=== PATIENT | female | born 1975 | race Caucasian/White ===

== ENCOUNTER 2019-01-21 10:37 | Inpatient (IN) | payer OTHER ==
[2019-01-21 12:26] VITALS: BMI 33.5
--- NOTE | 2019-01-21 13:18 | HP ---
COWS - Scale Resting Pulse: 1= SD 81-100 Sweatin= Chills/Flushing Restless Observation: 0= Sits Still Pupil Size: 0= Normal to Room Light Bone or Joint Aches: 2= Severe Diffuse Aches Runny Nose/ Eye Tearin= Runny Nose/Eyes GI Upset > 30mins: 2= Nausea/Diarrhea Tremor Observation: 1= Tremor [place], Not Seen Yawning Observation: 0= None Anxiety or Irritability: 2=Irritable/Anxious Goose Flesh Skin: 0=Smooth Skin COWS Score: 11 CIWA Score Nausea/Vomitin Muscle Tremors: 1-None Visible, but [place] Anxiety: 4-Mod. Anxious/Guarded Agitation: 1-Slight > Activity Paroxysmal Sweats: 2 Orientation: 2-Disoriented Date<2 days Tacttile Disturbances: 0-None Auditory Disturbances: 2-Mild Harshness/Frighten Visual Disturbances: 2-Mild Sensitivity Headache: 0-None Present CIWA-Ar Total Score: 16 - Admission Criteria OASAS Guidelines: Admission for Medically Managed Detox: Requires at least one of the followin. CIWA greater than 12 2. Seizures within the past 24 hours 3. Delirium tremens within the past 24 hours 4. Hallucinations within the past 24 hours 5. Acute intervention needed for co occurring medical disorder 6. Acute intervention needed for co occurring psychiatric disorder 7. Severe withdrawal that cannot be handled at a lower level of care (continued vomiting, continued diarrhea, abnormal vital signs) requiring intravenous medication and/or fluids 8. Admission ROS [facility] Allergies/Adverse Reactions: Allergies Allergy/AdvReac Type Severity Reaction Status Date / Time Latex, Natural Rubber Allergy Rash Verified 01/21/19 12:08 History of Present Illness: This report was requested by: Nadiya Orellana | Reference #: [id number] Others' Prescriptions Patient Name: Vidhi Nguyen Date: 1975 Address: [address] [place] [address] Sex: Female Rx Written Rx Dispensed Drug Quantity Days Supply Prescriber Name 01/05/2019 01/10/2019 fentanyl 100 mcg/hr patch 10 30 Amilcar Meza MD 12/14/2018 12/15/2018 fentanyl 100 mcg/hr patch 10 30 Amilcar Meza MD 12/14/2018 12/14/2018 diazepam 10 mg tablet 60 30 Amilcar Meza MD 11/23/2018 11/24/2018 alprazolam 2 mg tablet 90 30 MezaAmilcar MD 11/23/2018 11/24/2018 fentanyl 75 mcg/hr patch 10 30 MezaAmilcar MD 11/16/2018 11/20/2018 triazolam 0.25 mg tablet 90 30 MezaAmilcar MD 11/16/2018 11/16/2018 diazepam 10 mg tablet 60 30 MezaAmilcar MD 10/27/2018 10/27/2018 alprazolam 2 mg tablet 90 30 MezaAmilcar MD 10/27/2018 10/27/2018 fentanyl 75 mcg/hr patch 10 30 MezaAmilcar MD 10/21/2018 10/22/2018 flurazepam 15 mg capsule 20 20 MezaAmilcar MD 10/19/2018 10/19/2018 zolpidem tartrate 10 mg tablet 30 30 Meza Amilcar MD 10/01/2018 10/01/2018 alprazolam 2 mg tablet 90 30 MezaAmilcar MD 10/01/2018 10/01/2018 fentanyl 75 mcg/hr patch 10 30 MezaAmilcar MD 09/03/2018 09/03/2018 fentanyl 75 mcg/hr patch 10 30 MezaAmilcar MD 09/03/2018 09/03/2018 alprazolam 2 mg tablet 90 30 MezaAmilcar MD 08/04/2018 08/04/2018 fentanyl 75 mcg/hr patch 10 30 MezaAmilcar MD 08/03/2018 08/03/2018 alprazolam 2 mg tablet 90 30 MezaAmilcar MD 07/06/2018 07/06/2018 fentanyl 75 mcg/hr patch 10 30 MezaAmilcar MD 07/06/2018 07/06/2018 alprazolam 1 mg tablet 90 30 MezaAmilcar MD 07/06/2018 07/06/2018 triazolam 0.25 mg tablet 90 30 MezaAmilcar MD 06/08/2018 06/08/2018 fentanyl 75 mcg/hr patch 10 30 MezaAmilcar MD 06/08/2018 06/08/2018 alprazolam 1 mg tablet 90 30 MezaAmilcar MD 06/08/2018 06/08/2018 triazolam 0.25 mg tablet 90 30 DerrickAmilcar MD 05/07/2018 05/07/2018 fentanyl 75 mcg/hr patch 10 30 DerrickAmilcar MD 05/07/2018 05/07/2018 alprazolam 1 mg tablet 90 30 MezaAmilcar MD 05/07/2018 05/07/2018 triazolam 0.25 mg tablet 90 30 MezaAmilcar MD 04/10/2018 04/10/2018 fentanyl 75 mcg/hr patch 10 30 DerrickAmilcar MD 04/10/2018 04/10/2018 alprazolam 1 mg tablet 90 30 MezaAmilcar MD 03/31/2018 03/31/2018 triazolam 0.25 mg tablet 90 30 MezaAmilcar MD 03/09/2018 03/12/2018 alprazolam 1 mg tablet 90 30 MezaAmilcar MD 03/12/2018 03/12/2018 fentanyl 75 mcg/hr patch 10 30 DerrickAmilcar MD 02/27/2018 02/27/2018 triazolam 0.25 mg tablet 90 30 MezaAmilcar MD 02/12/2018 02/12/2018 fentanyl 75 mcg/hr patch 10 30 DerrickAmilcar MD 02/12/2018 02/12/2018 alprazolam 1 mg tablet 90 30 DerrickAmilcar MD 02/02/2018 02/02/2018 triazolam 0.25 mg tablet 90 30 DerrickAmilcar MD 01/30/2018 01/30/2018 acetaminophen-cod #3 tablet 20 pt reports rx for benzodiazepines x 10 years , denies abusing meds , states tried to go to the methadone clinic and was told to go to detox from benzodiazepine prior to admission . Pt reports heroin use until 3 days ago , went to [facility] 2/2 OD taking benzo and heroin 4 bags IVDU in jeanette UE , needles from the exchange , denies sharing , denies re-using , denies abscess , heroin use x 25 years , prior detox once at age 19 . Pt reports back pain since 10 years ago , rx for Fentanyl x 2 years for pain currently has 200 mcg /hr ( 2 patches ) reports pain in " spine " , neck , reports has seen orthopedics and was told she needs to have surgery , planning to have surgery . Pt initially denies abusing rx meds, then admits to using 2 fentanyl patches at one time , and states that from the most recent rx there are 2 patches left in her possession as she has already used all the others . PMHX : Alports' syndrome , cholelithiasis , ovarian cyst , hemangioma spine , chronic back pain and disc disease , [place] 10 days ago went to [facility]. 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 Exam Limitations: Clinical Condition - Ebola screening Have you traveled outside of the country in the last 21 days: No (N) Have you had contact with anyone from an Ebola affected area: No Do you have a fever: No Patient History - Smoking Cessation Smoking history: Current every day smoker Have you smoked in the past 12 months: Yes Initiated information on smoking cessation: No - Substances abused Alprazolam (Xanax) Substance route: Oral Frequency: Daily Amount used: 6mg Age of first use: 16 Date of last use: 01/18/19 Diazepam Substance route: Oral Frequency: Daily Amount used: 30mg Age of first use: 16 Date of last use: 01/18/19 Heroin Substance route: Injection Frequency: Daily Amount used: 4bags Age of first use: 16 Date of last use: 01/18/19 Other Other (specify): fentanyl- patch 200mg Frequency: Daily Amount used: 200mg q 3 days Age of first use: 40 Date of last use: 01/21/19 Admission Physical Exam BHS - Vital Signs Vital Signs: Vital Signs - 24 hr 01/21/19 01/21/19 12:06 12:46 Temperature 98.1 F 98.1 F Pulse Rate 91 H 91 H Respiratory 19 19 Rate Blood Pressure 139/95 139/95 - Physical General Appearance: Yes: Mild Distress, Anxious HEENTM: Yes: EOMI, Hearing grossly Normal, Normocephalic, Normal Voice Respiratory: Yes: Chest Non-Tender, Lungs Clear, Normal Breath Sounds Neck: Yes: No masses,lesions,Nodules, Trachea in good position Cardiology: Yes: Regular Rhythm, Regular Rate, S1, S2, Tachycardia Abdominal: Yes: Non Tender, Soft Back: Yes: Normal Inspection Musculoskeletal: Yes: Gait Steady Extremities: Yes: Normal Capillary Refill, Non-Tender Neurological: Yes: Alert, Motor Strength 5/5 Integumentary: Yes: Warm, Track Molina (jeanette UE , ecchymosis), Other (Fentanyl 100 MCG patch on outer aspect of each arm for a total of 200 mcg /hr unknown date of placement " they're almost out " per pt .) - Diagnostic (1) Opioid abuse Current Visit: Yes Status: Acute (2) Sedative dependence with current use Current Visit: Yes Status: Acute Breathalyzer - Breathalyzer Breathalyzer: 0 Urine Drug Screen - Test Device Lot number: [id number] Expiration date: 10/01/20 - Control Is test valid?: Yes - Results Drug screen NEGATIVE: No Urine drug screen results: FEN-Fentanyl, BZO-Benzodiazepines Inpatient Rehab Admission - Rehab Decision to Admit Inpatient rehab admission?: No
[2019-01-21] MEDS ORDERED: MENTHOL/PHENOL 1 EACH UD MM PRN (14:54)
[2019-01-21] MEDS ORDERED: DICYCLOMINE HCL 10 MG CAPSULE PO PRN (14:54)
[2019-01-21] MEDS ORDERED: MAGNESIUM HYDROX 2400MG/30ML ORAL SUSPENSION 30 ML CUP PO PRN (14:54)
[2019-01-21] MEDS ORDERED: ACETAMINOPHEN 325 MG TABLET (FP) PO PRN (14:54)
[2019-01-21] MEDS ORDERED: PROCHLORPERAZINE MALEATE 5 MG TABLET PO PRN (14:54)
[2019-01-21] MEDS ORDERED: hydrOXYzine PAMOATE 25 MG CAPSULE (FP) PO PRN (14:54)
[2019-01-21] MEDS ORDERED: MAG HYDROX/AL HYDROX/SIMETH 30 ML UNIT-DOSE CUP PO PRN (14:54)
[2019-01-21] MEDS ORDERED: NICOTINE POLACRILEX 2 MG GUM BUC PRN (14:54)
[2019-01-21] MEDS ORDERED: cloNIDine HCL 0.1 MG TABLET PO PRN (14:54)
[2019-01-21] MEDS ORDERED: MAGNESIUM CITRATE 300 ML BOTTLE PO PRN (14:54)
[2019-01-21] MEDS ORDERED: chlordiazePOXIDE HCL 25 MG CAPSULE PO ONE (15:15)
[2019-01-21] MEDS: chlordiazePOXIDE HCL 25 MG CAPSULE PO SCH ×2 (16:40→22:22)
[2019-01-21] MEDS: METHOCARBAMOL 500 MG TABLET PO PRN ×2 (16:49→22:44)
[2019-01-21] MEDS: ACETAMINOPHEN 325 MG TABLET (FP) PO PRN (18:48)
[2019-01-21] MEDS: THIAMINE HCL 100 MG TABLET (FP) PO SCH (22:21)
[2019-01-21] MEDS: MELATONIN 5 MG TABLETS PO PRN (22:43)
[2019-01-21] MEDS ORDERED: METHADONE HCL 10 MG TABLET (FOR DETOX USE ONLY) PO ONE (23:00)
[2019-01-22] MEDS: chlordiazePOXIDE HCL 25 MG CAPSULE PO SCH ×3 (05:21→17:51)
[2019-01-22] MEDS ORDERED: METHADONE HCL 10 MG TABLET (FOR DETOX USE ONLY) PO ONE (10:00)
[2019-01-22] MEDS: PRENATAL VITAMINS W/ FOLIC ACID TABLET (FP) PO SCH (10:11)
[2019-01-22] MEDS ORDERED: LIDOCAINE 5% TOPICAL PATCH TP ONE (11:25)
--- NOTE | 2019-01-22 11:30 | CONSULT ---
[facility] Psychiatric Consult - Data Date of interview: 01/22/19 Admission source: [facility] Identifying data: Patient is a 43 year old single female, without children, unemployed, homeless, and is supported by [facility]. This is patient's first admission to detox at [facility]. Patient admitted to for opioid and benzodiazepine dependence. Substance Abuse History: Smoking Cessation. Smoking history: Current every day smoker. Have you smoked in the past 12 months: Yes. Initiated information on smoking cessation: No. - Substances abused. Alprazolam (Xanax). Substance route: Oral. Frequency: Daily. Amount used: 6mg. Age of first use: 16. Date of last use: 01/18/19. Diazepam. Substance route: Oral. Frequency: Daily. Amount used: 30mg. Age of first use: 16. Date of last use: 01/18/19. Heroin. Substance route: Injection. Frequency: Daily. Amount used: 4bags. Age of first use: 16. Date of last use: 01/18/19. Other. Other (specify): fentanyl- patch 200mg. Frequency: Daily. Amount used: 200mg q 3 days. Age of first use: 40. Date of last use: 01/21/19 Medical History: adenoids and tonsillectomy @ age 6 Psychiatric History: Patient's first psychiatric contact was at 11 years of age after she had a suicide attempt via cutting wrist and overdose. She was admitted to [facility] and started on psychotropic medications. After discharge she continued psychiatric treatment as an adolescent in outpatient clinics and reports being prescribed valium, xanac, and antidepressant medications. As an adult patient reports two psychiatric hospitalizations at [facility]. As an adult she reports one suicide attempt over ten years ago via overodse. Outpatient psychiatric care is provided by a private psychiatrist in [facility]. Ms. Jernigan is currently prescribed Celexa 40mg HS + Thorazine 50mg BID. At present she reports feeling sad but is motivated to complete detox. Physical/Sexual Abuse/Trauma History: denies. Mental Status Exam - Mental Status Exam Alert and Oriented to: Time, Place, Person Cognitive Function: Good Patient Appearance: Well Groomed Mood: Sad Affect: Mood Congruent Patient Behavior: Cooperative Speech Pattern: Appropriate Voice Loudness: Normal Thought Process: Goal Oriented Thought Disorder: Not Present Hallucinations: Denies Suicidal Ideation: Denies Homicidal Ideation: Denies Insight/Judgement: Poor Sleep: Poorly Appetite: Fair Muscle strength/Tone: Normal Gait/Station: Normal Psychiatric Findings - Problem List ([place] 1, 2,3) (1) Opioid abuse Current Visit: Yes Status: Acute (2) Sedative dependence with current use Current Visit: Yes Status: Acute (3) Substance-induced sleep disorder Current Visit: Yes Status: Acute (4) Substance induced mood disorder Current Visit: Yes Status: Acute (5) Depressive disorder Current Visit: Yes Status: Chronic - Initial Treatment Plan Initial Treatment Plan: Psychoeducation provided. Detoxification in progress. Will order Celexa 40mg HS + Thorazine 50mg BID. Benefits and side effects discussed. Verbal consent given.
[2019-01-22] MEDS: ACETAMINOPHEN 325 MG TABLET (FP) PO PRN (13:27)
[2019-01-22] MEDS: diphenhydrAMINE HCL 25 MG CAPSULE (FP) PO PRN (13:30)
--- NOTE | 2019-01-22 14:44 | PN ---
[facility] CIWA - CIWA Score Nausea/Vomitin-No Nausea/No Vomiting Muscle Tremors: 3 Anxiety: 3 Agitation: 4-Moderately Restless Paroxysmal Sweats: 3 Orientation: 0-Oriented Tacttile Disturbances: 0-None Auditory Disturbances: 0-None Visual Disturbances: 0-None Headache: 0-None Present CIWA-Ar Total Score: 13 BHS COWS - Scale Resting Pulse: 4= [place] > 121 Sweatin=Flushed/Facial Moisture Restless Observation: 1= Difficult to Sit Still Pupil Size: 0= Normal to Room Light Bone or Joint Aches: 2= Severe Diffuse Aches Runny Nose/ Eye Tearin= Runny Nose/Eyes GI Upset > 30mins: 1= Stomach Cramp Tremor Observation of Outstretched Hands: 2= Slight Tremor Visible Yawning Observation: 2= >3x During Session Anxiety or Irritability: 2=Irritable/Anxious Goose Flesh Skin: 3=Piloerection COWS Score: 21 BHS Progress Note (SOAP) Subjective: rash on my skin sweats shakes interrupted sleep back pain agitation anxiety Objective: 01/22/19 15:08 Vital Signs Temperature 98.2 F 01/22/19 14:02 Pulse Rate 126 H 01/22/19 14:02 Respiratory Rate 19 01/22/19 14:02 Blood Pressure 130/78 01/22/19 14:02 O2 Sat by Pulse Oximetry (%) Laboratory Tests 01/21/19 13:55 POC Urine HCG, Qual Negative rest of labs pending aaox3 ambulating no acute distress Assessment: 01/22/19 15:09 withdrawal sx Plan: continue detox increase fluids clonidon 0.1mg bid with parameters lidcaine patch motrin 800mg tid robaxin 500mg prn
[2019-01-22] MEDS: chlorproMAZINE HCL 25 MG TABLET PO SCH ×2 (14:46→22:07)
[2019-01-22] MEDS: METHOCARBAMOL 500 MG TABLET PO PRN ×2 (14:52→22:11)
[2019-01-22] MEDS: chlordiazePOXIDE HCL 25 MG CAPSULE PO PRN (14:52)
[2019-01-22] MEDS ORDERED: cloNIDine HCL 0.1 MG TABLET PO ONE (14:56)
[2019-01-22] MEDS ORDERED: IBUPROFEN 400 MG TABLET (FP) PO PRN (15:10)
[2019-01-22 15:47] LABS: BILIRUBIN,TOTAL 0.5 mg/dL (0.2-1); CALCIUM 9.5 mg/dL (8.5-10.1); CREATININE 0.9 mg/dL (0.55-1.3); POTASSIUM 3.9 mmol/L (3.5-5.1); TOT PROT 8.2 g/dl (6.4-8.2)
[2019-01-22 16:10] LABS: HEMATOCRIT 37.7 % (32.4-45.2); HEMOGLOBIN 12.5 GM/dL (10.7-15.3); MCH 29.3 pg (25.7-33.7); MCHC 33.1 g/dl (32.0-36.0); MEAN CELL VOLUME 88.6 fl (80-96); MEAN PLT VOLUME 9.3 fl (7.5-11.1); PLATELET COUNT 325 K/MM3 (134-434); RBC 4.26 M/mm3 (3.60-5.2); RDW 15.7 % (11.6-15.6); WHITE BLOOD COUNT 10.1 K/mm3 (4.0-10.0)
[2019-01-22] MEDS: cloNIDine HCL 0.1 MG TABLET PO SCH (22:07)
[2019-01-22] MEDS: THIAMINE HCL 100 MG TABLET (FP) PO SCH (22:07)
[2019-01-22] MEDS: MELATONIN 5 MG TABLETS PO PRN (22:11)
[2019-01-22] MEDS: LIDOCAINE PATCH REMOVAL MC SCH (22:13)
[2019-01-23] MEDS: CITALOPRAM HYDROBROMIDE 20 MG TABLET (FP) PO SCH ×2 (00:16→22:03)
[2019-01-23] MEDS: chlordiazePOXIDE HCL 25 MG CAPSULE PO SCH ×3 (00:17→10:25)
[2019-01-23] MEDS: METHOCARBAMOL 500 MG TABLET PO PRN ×3 (06:29→23:43)
[2019-01-23] MEDS ORDERED: METHADONE HCL 10 MG TABLET (FOR DETOX USE ONLY) PO ONE (10:00)
[2019-01-23] MEDS: cloNIDine HCL 0.1 MG TABLET PO SCH ×2 (10:24→22:03)
[2019-01-23] MEDS: PRENATAL VITAMINS W/ FOLIC ACID TABLET (FP) PO SCH (10:25)
[2019-01-23] MEDS: LIDOCAINE 5% TOPICAL PATCH TP SCH (10:26)
[2019-01-23] MEDS: chlorproMAZINE HCL 25 MG TABLET PO SCH ×2 (10:26→23:42)
--- NOTE | 2019-01-23 11:46 | PN ---
[facility] CIWA - CIWA Score Nausea/Vomitin-No Nausea/No Vomiting Muscle Tremors: 2 Anxiety: 2 Agitation: 0-Normal Activity Paroxysmal Sweats: 3 Orientation: 0-Oriented Tacttile Disturbances: 0-None Auditory Disturbances: 0-None Visual Disturbances: 0-None Headache: 3-Moderate CIWA-Ar Total Score: 10 BHS COWS - Scale Resting Pulse: 2= [place] 101-120 Sweatin= Chills/Flushing Restless Observation: 1= Difficult to Sit Still Pupil Size: 0= Normal to Room Light Bone or Joint Aches: 2= Severe Diffuse Aches Runny Nose/ Eye Tearin= None GI Upset > 30mins: 0= None Tremor Observation of Outstretched Hands: 2= Slight Tremor Visible Yawning Observation: 1= 1-2x During Session Anxiety or Irritability: 2=Irritable/Anxious Goose Flesh Skin: 0=Smooth Skin COWS Score: 11 S Progress Note (SOAP) Subjective: c/o sweats, muscle pain, headache, shakes, and anxiety. Objective: 01/23/19 11:45 Vital Signs 01/23/19 01/23/19 08:33 09:17 Temperature 97 F L 97.7 F Pulse Rate 107 H 110 H Respiratory 20 16 Rate Blood Pressure 102/73 121/65 Laboratory Last Values WBC 10.1 K/mm3 (4.0-10.0) H 01/22/19 11:30 RBC 4.26 M/mm3 (3.60-5.2) 01/22/19 11:30 Hgb 12.5 GM/dL (10.7-15.3) 01/22/19 11:30 Hct 37.7 % (32.4-45.2) 01/22/19 11:30 MCV 88.6 fl (80-96) 01/22/19 11:30 MCH 29.3 pg (25.7-33.7) 01/22/19 11:30 MCHC 33.1 g/dl (32.0-36.0) 01/22/19 11:30 RDW 15.7 % (11.6-15.6) H 01/22/19 11:30 Plt Count 325 K/MM3 (134-434) 01/22/19 11:30 MPV 9.3 fl (7.5-11.1) 01/22/19 11:30 Sodium 135 mmol/L (136-145) L 01/22/19 11:30 Potassium 3.9 mmol/L (3.5-5.1) 01/22/19 11:30 Chloride 101 mmol/L (98-107) 01/22/19 11:30 Carbon Dioxide 27 mmol/L (21-32) 01/22/19 11:30 Anion Gap 7 MMOL/L (8-16) L 01/22/19 11:30 BUN 16 mg/dL (7-18) 01/22/19 11:30 Creatinine 0.9 mg/dL (0.55-1.3) 01/22/19 11:30 Est GFR (CKD-EPI)AfAm 90.76 01/22/19 11:30 Est GFR (CKD-EPI)NonAf 78.31 01/22/19 11:30 Random Glucose 122 mg/dL (74-106) H 01/22/19 11:30 Calcium 9.5 mg/dL (8.5-10.1) 01/22/19 11:30 Total Bilirubin 0.5 mg/dL (0.2-1) 01/22/19 11:30 AST 12 U/L (15-37) L 01/22/19 11:30 ALT 23 U/L (13-61) 01/22/19 11:30 Alkaline Phosphatase 82 U/L (45-117) 01/22/19 11:30 Total Protein 8.2 g/dl (6.4-8.2) 01/22/19 11:30 Albumin 4.0 g/dl (3.4-5.0) 01/22/19 11:30 POC Urine HCG, Qual Negative 01/21/19 13:55 RPR Titer Nonreactive (NONREACTIVE) 01/22/19 11:30 Labs noted. Assessment: 01/23/19 11:45 AOX3, in no acute distress full rom, ambulating in the unit withdrawal symptoms. Plan: continue detox increase fluids
[2019-01-23] MEDS: chlordiazePOXIDE HCL 25 MG CAPSULE PO PRN (14:59)
[2019-01-23] MEDS: diphenhydrAMINE HCL 25 MG CAPSULE (FP) PO PRN ×2 (14:59→22:03)
--- NOTE | 2019-01-23 15:44 | EKG ---
Test Reason : Blood Pressure : / mmHG Vent. Rate : 089 BPM Atrial Rate : 089 BPM P-R Int : 166 ms QRS Dur : 086 ms QT Int : 380 ms P-R-T Axes : 045 067 025 degrees QTc Int : 462 ms NORMAL SINUS RHYTHM NORMAL ECG NO PREVIOUS ECGS AVAILABLE Confirmed by MD Pawel, Edwin ([id number]) on 01/23/2019 3:43:53 PM Referred By: Confirmed By:Edwin Armas MD
[2019-01-23] MEDS ORDERED: chlordiazePOXIDE HCL 10 MG CAPSULE PO PRN (17:00)
[2019-01-23] MEDS: chlordiazePOXIDE HCL 10 MG CAPSULE PO SCH ×2 (17:08→22:07)
[2019-01-23] MEDS: LIDOCAINE PATCH REMOVAL MC SCH (22:05)
[2019-01-23] MEDS: MELATONIN 5 MG TABLETS PO PRN (22:05)
[2019-01-23] MEDS: THIAMINE HCL 100 MG TABLET (FP) PO SCH (22:06)
[2019-01-24] MEDS: chlordiazePOXIDE HCL 10 MG CAPSULE PO SCH ×3 (06:15→17:08)
[2019-01-24] MEDS: LIDOCAINE 5% TOPICAL PATCH TP SCH (09:46)
[2019-01-24] MEDS: cloNIDine HCL 0.1 MG TABLET PO SCH ×2 (09:50→21:53)
[2019-01-24] MEDS: chlorproMAZINE HCL 25 MG TABLET PO SCH ×2 (09:50→21:53)
[2019-01-24] MEDS: PRENATAL VITAMINS W/ FOLIC ACID TABLET (FP) PO SCH (09:50)
[2019-01-24] MEDS: METHOCARBAMOL 500 MG TABLET PO PRN ×2 (09:50→21:55)
[2019-01-24] MEDS ORDERED: METHADONE HCL 10 MG TABLET (FOR DETOX USE ONLY) PO ONE (10:00)
[2019-01-24] MEDS: diphenhydrAMINE HCL 25 MG CAPSULE (FP) PO PRN ×2 (11:30→21:53)
--- NOTE | 2019-01-24 15:21 | PN ---
S CIWA - CIWA Score Nausea/Vomitin-Mild Nausea/No Vomiting Muscle Tremors: 3 Anxiety: 2 Agitation: 2 Paroxysmal Sweats: 3 Orientation: 0-Oriented Tacttile Disturbances: 0-None Auditory Disturbances: 0-None Visual Disturbances: 0-None Headache: 0-None Present CIWA-Ar Total Score: 11 BHS COWS - Scale Resting Pulse: 1= [place] 81-100 Sweatin= Chills/Flushing Restless Observation: 3= Extraneous Movement Pupil Size: 0= Normal to Room Light Bone or Joint Aches: 2= Severe Diffuse Aches Runny Nose/ Eye Tearin= Runny Nose/Eyes GI Upset > 30mins: 1= Stomach Cramp Tremor Observation of Outstretched Hands: 0= None Yawning Observation: 0= None Anxiety or Irritability: 2=Irritable/Anxious Goose Flesh Skin: 0=Smooth Skin COWS Score: 12 BHS Progress Note (SOAP) Subjective: Body aches, chills, sweating, eyes hurting, nausea. Patient requesting to see Psychiatrist stating she has been experiencing nightmare and wants trazodone Objective: 01/24/19 15:21 Last Vital Signs Temp Pulse Resp BP Pulse Ox 96.1 F L 91 H 18 130/65 01/24/19 14:47 01/24/19 14:47 01/24/19 14:47 01/24/19 14:47 Laboratory Tests 01/21/19 01/22/19 01/22/19 13:55 11:30 11:30 WBC 10.1 H RBC 4.26 Hgb 12.5 Hct 37.7 MCV 88.6 MCH 29.3 MCHC 33.1 RDW 15.7 H Plt Count 325 MPV 9.3 Sodium 135 L Potassium 3.9 Chloride 101 Carbon Dioxide 27 Anion Gap 7 L BUN 16 Creatinine 0.9 Est GFR (CKD-EPI)AfAm 90.76 Est GFR (CKD-EPI)NonAf 78.31 Random Glucose 122 H Calcium 9.5 Total Bilirubin 0.5 AST 12 L ALT 23 Alkaline Phosphatase 82 Total Protein 8.2 Albumin 4.0 POC Urine HCG, Qual Negative RPR Titer 01/22/19 11:30 WBC RBC Hgb Hct MCV MCH MCHC RDW Plt Count MPV Sodium Potassium Chloride Carbon Dioxide Anion Gap BUN Creatinine Est GFR (CKD-EPI)AfAm Est GFR (CKD-EPI)NonAf Random Glucose Calcium Total Bilirubin AST ALT Alkaline Phosphatase Total Protein Albumin POC Urine HCG, Qual RPR Titer Nonreactive Labs reviewed: glucose 122 Assessment: 01/24/19 15:23 Withdrawal symptoms Noted with hyperglycemia Plan: Continue detox Encouraged PO water intake Hyperglycemia: could be related to withdrawal, repeat fasting glucose
[2019-01-24] MEDS: THIAMINE HCL 100 MG TABLET (FP) PO SCH (21:53)
[2019-01-24] MEDS: CITALOPRAM HYDROBROMIDE 20 MG TABLET (FP) PO SCH (21:53)
[2019-01-24] MEDS: LIDOCAINE PATCH REMOVAL MC SCH (21:54)
[2019-01-24] MEDS: ACETAMINOPHEN 325 MG TABLET (FP) PO PRN (23:29)
[2019-01-25] MEDS: chlordiazePOXIDE HCL 10 MG CAPSULE PO SCH (05:40)
[2019-01-25] MEDS: METHOCARBAMOL 500 MG TABLET PO PRN (05:42)
[2019-01-25] MEDS ORDERED: METHADONE HCL 5 MG TABLET (FOR DETOX USE ONLY) PO ONE (06:00)
[2019-01-25 07:37] VITALS: BP 124/83; PULSE 96; TEMP 97.5
--- NOTE | 2019-01-25 10:09 | DS ---
[facility] Detox Discharge Summary Admission Date: 01/21/19 Discharge Date: 01/25/19 - History Present History: Opioid Dependence, Sedative Dependence - Physical Exam Results Vital Signs: Vital Signs Temperature 97.5 F L 01/25/19 07:36 Pulse Rate 96 H 01/25/19 07:36 Respiratory Rate 18 01/25/19 07:36 Blood Pressure 124/83 01/25/19 07:36 O2 Sat by Pulse Oximetry (%) - Treatment Hospital Course: Detox Protocol Followed, Detoxed Safely, Responded well, Discharged Condition Good, Rehab Referral Accepted - Medication Discharge Medications: Ambulatory Orders Chlorpromazine [Thorazine -] 25 mg PO BID 01/21/19 Citalopram Hydrobromide [Celexa -] 20 mg PO BID 01/21/19 - Diagnosis (1) Opioid abuse Current Visit: Yes Status: Chronic (2) Sedative dependence with current use Current Visit: Yes Status: Chronic (3) Substance induced mood disorder Current Visit: Yes Status: Acute (4) Substance-induced sleep disorder Current Visit: Yes Status: Acute (5) Depressive disorder Current Visit: Yes Status: Chronic - AMA Did Patient Leave Against Medical Advice: No (pt declined rehab; referred to her outpatient/ PCP.)
== END 2019-01-25 10:12 | disposition home or self-care (01) | DRG 773 ==
LOC: YASAS 10:37 → Y6N 14:42
PROVIDERS: ADMIT Surgery; ATTEND Surgery
PROC: HZ2ZZZZ Detoxification Services for Substance Abuse Treatment (ICD-10-PCS; principal; 2019-01-21)
DX: F11.23 Opioid dependence with withdrawal (principal); F13.230 Sedative, hypnotic or anxiolytic dependence with withdrawal, uncomplicated; F19.24 Other psychoactive substance dependence with psychoactive substance-induced mood disorder; F19.282 Other psychoactive substance dependence with psychoactive substance-induced sleep disorder; F32.9 Major depressive disorder, single episode, unspecified; R73.9 Hyperglycemia, unspecified
CPT/HCPCS: 36415; 80053; 81025; 85027; 86593; 93005; 93010; J0735